=== PATIENT | male | born 1980 | race Caucasian/White ===

== ENCOUNTER 2019-01-25 10:37 | Emergency (ER) | payer SELFPAY ==
[~2019-01-25] VITALS: Ht 170.2 cm; Wt 70.6 kg
[2019-01-25 10:39] VITALS: BP 140/81; PULSE 125; RESP 18; Ht 170.2 cm; Wt 70.6 kg
[2019-01-25] MEDS ORDERED: METHADONE 10 MG TAB PO ONE (12:30)
--- NOTE | 2019-01-25 13:23 | ERD ---
ER Documentation Chief Complaint Chief Complaint FEELING ANXIOUS , SHAKEY , PALPITATIONS , LAST DRINK LAST NIGHT HPI This is a 38-year-old male who is here because he is in withdraw from [place]. The patient is not in alcohol withdrawal. He says he has appointment tomorrow to be admitted inpatient for his narcotic issues. He says he felt a little shaky this morning and he is out of his 4 mg tablets. He is asking for 1 dose so he can make it through the day and get admitted tomorrow at his outpatient facility. No GI symptoms no neurological complaints. ROS All systems reviewed and are negative except as per history of present illness. Allergies Allergies: Coded Allergies: ciprofloxacin (Verified Allergy, Unknown, 01/25/19) FmHx Family History: No coronary disease Physical Exam Vitals Vital Signs Date Temp Pulse Resp B/P (MAP) Pulse Ox O2 O2 Flow FiO2 Time Delivery Rate 01/25/19 99.9 125 18 140/81 98 10:39 (100) Physical Exam Const: Well-developed, well-nourished Head: Atraumatic, normocephalic Eyes: Normal Conjunctiva, PERRLA, EOMI, normal sclera, no nystagmus ENT: Normal External Ears, Nose and Mouth, moist mucus membranes. Neck: Full range of motion. No meningismus, no lymphadenopathy. Resp: Clear to auscultation bilaterally, no wheezing, rhonchi, rales Cardio: Regular rate and rhythm, no murmurs, S1 S2 present Abd: Soft, non tender x 4, non distended. Normal bowel sounds, no guarding or rebound, no pulsitile abdominal masses or bruits Skin: No petechiae or rashes, no ecchymosis , no maculopapular rash Back: No midline or flank tenderness Ext: No cyanosis, or edema, FROM x 4, normal inspection, neurovascularly intact x 4 Neur: Awake and alert, STR 5/5 x 4, sensation intact x 4, no focal findings, cerebellum intact Psych: Normal Mood and Affect Results 24 hrs Current Medications Medications Dose Sig/Idalmis Start Time Status Last (Trade) Ordered Route PRN Stop Time Admin Dose Reason Admin Methadone 20 mg ONCE ONCE 01/25/19 DC 01/25/19 HCl PO 12:30 01/25/19 12:56 (Methadone) 12:31 Procedures/MDM The pharmacy does not had a medication but the equivalent of that is 20 mg of methadone which I will give him now than discharge The patient actually ended up eloping from the ER Departure Diagnosis: Primary Impression: Narcotic withdrawal Condition: Stable CALLUM HODGES DO Jan 25, 2019 13:23
== END 2019-01-25 14:05 | disposition home or self-care (01) ==
LOC: E/R 10:37
DX: F11.23 Opioid dependence with withdrawal (principal)
CPT/HCPCS: 99283